=== PATIENT | female | born 1960 | race Caucasian/White ===

== ENCOUNTER 2019-09-10 14:58 | Outpatient (CLI) | payer OTHER, SELFPAY ==
--- NOTE | ~2019-09-10 | MM_ITS ---
EXAMINATION: MM screening [facility] BI w [facility] HISTORY: Screening mammogram TECHNIQUE: Craniocaudal and mediolateral oblique 3-D tomosynthesis images were obtained and synthetic 2-D images were generated. CAD analysis was submitted and interpreted. COMPARISON: 07/23/2018, 07/13/2015, 06/22/2014 BREAST PARENCHYMAL COMPOSITION: There are scattered areas of fibroglandular density. FINDINGS: There is no evidence of suspicious mass, calcification, or architectural distortion to sugg est malignancy in either breast. There has been no suspicious interval change. IMPRESSION: 1. No mammographic evidence of malignancy. 2. Recommend routine screening mammography in one year. BI-RADS Category 1: Negative Reviewed, dictated and finalized at location A. O RN
== END 2019-09-10 14:59 | disposition home or self-care (01) ==
PROVIDERS: PCP Nurse Practitioner Family; Visit Provider Nurse Practitioner Family
DX: Z12.31 Encounter for screening mammogram for malignant neoplasm of breast (principal)
CPT/HCPCS: 77063; 77067

== ENCOUNTER 2020-09-12 14:48 | Outpatient (CLI) | payer OTHER, SELFPAY ==
--- NOTE | ~2020-09-12 | MM_ITS ---
EXAMINATION: MM screening [facility] BI w [facility] HISTORY: Screening mammogram TECHNIQUE: Craniocaudal and mediolateral oblique 3-D tomosynthesis images were obtained and synthetic 2-D images were generated. CAD analysis was submitted and interpreted. COMPARISON: 09/10/2019, 07/23/2018, 07/13/2015 BREAST PARENCHYMAL COMPOSITION: There are scattered areas of fibroglandular density. FINDINGS: There is no evidence of suspicious mass, calcification, or architectural distortion to sugg est malignancy in either breast. There has been no suspicious interval change. IMPRESSION: 1. No mammographic evidence of malignancy. 2. Recommend routine screening mammography in one year. BI-RADS Category 1: Negative Reviewed, dictated and finalized at location A. LE BRANDER
== END 2020-09-12 14:49 | disposition home or self-care (01) ==
LOC: ANHIMG 14:50
PROVIDERS: PCP Nurse Practitioner Family; Visit Provider Nurse Practitioner Family
DX: Z12.31 Encounter for screening mammogram for malignant neoplasm of breast (principal)
CPT/HCPCS: 77063; 77067

== ENCOUNTER 2020-09-13 07:11 | Outpatient (CLI) | payer OTHER, SELFPAY ==
[2020-09-13 07:46] LABS: Basophils Percent Auto 0.4 % (0.2-1.2); Eosinophils Absolute Auto 0.2 K/mm3 (0-0.3); Eosinophils Percent Auto 2.8 % (0-4.4); Hematocrit 42.5 % (37.0-47.0); Hemoglobin 14.1 g/dL (12.0-15.0); Immature Granulocyte Absolute 0.02 K/mm3 (0.00-0.031); Immature Granulocyte Percent A 0.2 % (0-0.5); Lymphocytes Absolute Auto 2.27 K/mm3 (0.9-3.2); Lymphocytes Percent Auto 27.5 % (18.3-44.2); Mean Corpuscular HGB Conc 33.2 g/dl (32-36); Mean Corpuscular Hemoglobin 29.6 pg (26-34); Mean Corpuscular Volume 89.1 fl (80-100); Mean Platelet Volume 9.5 fl (7.4-10.4); Monocytes Absolute Auto 0.8 K/mm3 (0.1-0.6); Monocytes Percent Auto 9.2 % (2.6-8.5); Neutrophils Absolute Auto 4.9 K/mm3 (1.3-6.7); Neutrophils Percent Auto 59.9 % (45.5-73.1); Platelet Count Result 231 k/mm3 (150-375); Red Blood Count 4.77 M/mm3 (4.2-5.4); Red Cell Distribution Width 13.2 % (11.5-14.5); White Blood Count 8.3 K/mm3 (4.5-10.0)
[2020-09-13 08:00] LABS: Alanine Aminotransferase 19 U/L (4-35); Albumin Level 3.8 g/dL (3.5-5.1); Alkaline Phosphatase 81 U/L (38-126); Anion Gap 4 mmol/L (8-16); Aspartate Amino Transferase 28 U/L (14-36); Bilirubin,Total 0.3 mg/dL (0.2-1.3); Blood Urea Nitrogen 16 mg/dL (7-17); Calcium 9.4 mg/dL (8.4-10.2); Carbon Dioxide 28 mmol/L (22-30); Chloride 109 mmol/L (98-107); Cholesterol 207 mg/dL (0-200); Estimated Glomerular Filt Rate > 60; Glucose 94 mg/dL (65-105); HDL Direct 59 mg/dL; Potassium 4.7 mmol/L (3.4-5.0); Sodium 141 mmol/L (137-145); Triglycerides 156 mg/dL (<150)
[2020-09-13 08:28] LABS: LDL Cholesterol Direct 88 mg/dL; Vitamin D 25 Hydroxy 58.1 ng/mL
== END 2020-09-13 07:12 | disposition home or self-care (01) ==
PROVIDERS: PCP Nurse Practitioner Family; Visit Provider Nurse Practitioner Family
DX: Z13.0 Encounter for screening for diseases of the blood and blood-forming organs and certain disorders involving the immune mechanism (principal); Z13.1 Encounter for screening for diabetes mellitus; Z13.29 Encounter for screening for other suspected endocrine disorder; Z13.220 Encounter for screening for lipoid disorders; Z13.9 Encounter for screening, unspecified
CPT/HCPCS: 36415; 80053; 80061; 82306; 82607; 84443; 85025

== ENCOUNTER → 2020-11-18 00:43 | Outpatient (CLI) | payer OTHER, SELFPAY ==
[2020-11-18 19:49] LABS: SARS-CoV-2 RNA PCR Negative
== END ==
PROVIDERS: PCP Nurse Practitioner Family; Visit Provider Internal Medicine Gastroenterology
DX: Z01.812 Encounter for preprocedural laboratory examination (principal); Z20.822 Contact with and (suspected) exposure to COVID-19
CPT/HCPCS: C9803; U0003; U0005

== ENCOUNTER 2020-11-21 01:00 | Day surgery (SDC) | payer OTHER, SELFPAY ==
[2020-11-07 14:21] VITALS: BMI 24.9
[2020-11-21 06:50] VITALS: BMI 25.5
[2020-11-21 06:54] VITALS: BP 142/87; PULSE 76; RESP 16; TEMP 36.3; O2SAT 99
[2020-11-21] MEDS: LACTATED RINGERS 1,000 ML 150 ML IV CONT (07:05)
--- NOTE | 2020-11-21 07:44 | WPDANESEPPF ---
Anes - Initial Pre Proc Eval Procedure: Operation Date: 11/21/20 08:00 Proposed Procedures p Esophagogastroduodenoscopy - Stewart Kenney MD Date/Time: 11/21/20 07:44 Surgeon: Stewart Kenney MD Pre Op Diagnosis: Dysphagia Patient Data Age: 60 Gender: F Height: 5 ft 5 in Weight: 69.7 kg Last Vital Signs Temp 97.3 F L 11/21/20 06:54 Pulse 76 11/21/20 06:54 Resp 16 11/21/20 06:54 BP 142/87 H 11/21/20 06:54 Pulse Ox 99 11/21/20 06:54 Allergies Allergy/AdvReac Type Severity Reaction Status Date / Time Iodinated Contrast Media Allergy Severe RASH, Verified 11/21/20 07:08 HYPOTENSION adhesive Allergy Unknown RASH Verified 11/21/20 06:49 doxycycline Allergy Unknown Unknown Verified 11/21/20 06:49 ORAL CONTRAST MEDIA Allergy Mild RASH Uncoded 11/21/20 06:49 Contrast Media Allergy Unknown RASH, Uncoded 11/21/20 06:49 HYPOTENSION Home Medications Medication Instructions Recorded Confirmed Type omeprazole 20 mg capsule,delayed 20 mg PO DAILY #30 cap 09/14/20 11/21/20 Rx release diazepam 11/21/20 History Patient hx anesthesia problems: none Family hx anesthesia problems: none PMFSH Past Medical History Medical History (Updated 09/14/20 @ 14:32 by Stewart Kenney MD) GERD (gastroesophageal reflux disease) Family History Family History Other Family history of allergic disorder Family history of arthritis Family history of gout Family history of malignant neoplasm Family history of tuberculosis Hypertension Social History Social History (Updated 09/14/20 @ 14:11 by Vivi Barry CMA) Smoking status: Never smoker Alcohol intake: current Substance use: never Living arrangements: with family Gender identity (if verbalized by the patient): Female Sexual Orientation (if Verbalized by the Patient): Straight or Heterosexual Spiritual care concerns: No Anes - Eval Final PreProcedure Day of Procedure 11/21/20 07:44 Patient weight: normal Heart: regular rate and rhythm Lungs: clear to auscultation Airway: Mallampati scale class IV Neurological: alert and oriented Last oral intake: >/= 8 hours ASA classification: II Emergent: no Anesthetic plan: proceed Anesthesia type and monitoring: general GIVS and standard monitoring Informed Consent: The patient's anesthetic plan and its attendant risks and benefits were discussed with the patient/family/POA. Questions were solicited and answers provided to the satisfaction of the patient/family/POA.
--- NOTE | 2020-11-21 07:49 | PM.HPGS ---
History of Present Illness History of Present Illness Consent: Risks, benefits, and alternatives have been discussed and questions answered. Patient agrees to proceed with procedure. Chief complaint: Dysphagia Narrative: Adamaris Kim is a 60 year old female with dysphagia, never had EGD Review of Systems Constitutional: Constitutional: Denies headache(s) and Denies weakness Eyes: Eyes: Denies blurry vision ENT: Reports Normal hearing present, Denies headache(s) and Denies neck pain Cardiovascular: Cardiovascular: Denies chest pain and Denies dyspnea Respiratory: Respiratory: Denies dyspnea Gastrointestinal: Gastrointestinal: Reports no additional gastrointestinal complaints Genitourinary: Genitourinary: Denies dysuria Musculoskeletal: Musculoskeletal: Denies neck pain Integumentary/Breasts: Skin/Breast: Denies dry skin Neurologic: Reports Normal hearing present, Denies headache(s) and Denies weakness Psychiatric: Psychiatric: Denies anxiety Endocrine: Endocrine: Denies change in body appearance Hematologic/Lymphatic: Hematologic/Lymphatic: Denies easy bleeding Allergic/Immunologic: Allergic/Immunologic: Denies urticaria PMFSH Past Medical History Medical History (Updated 11/21/20 @ 07:50 by Stewart Kenney MD) Dysphagia GERD (gastroesophageal reflux disease) Family History Family History Other Family history of allergic disorder Family history of arthritis Family history of gout Family history of malignant neoplasm Family history of tuberculosis Hypertension Social History Social History (Updated 09/14/20 @ 14:11 by Vivi Barry CMA) Smoking status: Never smoker Alcohol intake: current Substance use: never Living arrangements: with family Gender identity (if verbalized by the patient): Female Sexual Orientation (if Verbalized by the Patient): Straight or Heterosexual Spiritual care concerns: No Meds Home Medications and Allergies Home Medications Medication Instructions Recorded Confirmed Type omeprazole 20 mg capsule,delayed 20 mg PO DAILY #30 cap 09/14/20 11/21/20 Rx release diazepam 11/21/20 History Allergies Allergy/AdvReac Type Severity Reaction Status Date / Time Iodinated Contrast Media Allergy Severe RASH, Verified 11/21/20 07:08 HYPOTENSION adhesive Allergy Unknown RASH Verified 11/21/20 06:49 doxycycline Allergy Unknown Unknown Verified 11/21/20 06:49 ORAL CONTRAST MEDIA Allergy Mild RASH Uncoded 11/21/20 06:49 Contrast Media Allergy Unknown RASH, Uncoded 11/21/20 06:49 HYPOTENSION Vital Signs Vital Signs - 24 hr 11/21/20 06:54 Temperature 97.3 F L Pulse Rate 76 Respiratory Rate 16 Blood Pressure 142/87 H Pulse Oximetry 99 Exam Const: General: comfortable and no acute distress HENMT: General nose exam: Normal nares present Eyes: General: appearance normal, both eyes and all related structures Neck: Neck: no JVD Resp: Auscultation: clear to auscultation bilaterally Cardio: Rate: regular rate Rhythm: regular rhythm GI: Inspection: non-distended GI Palp: Yes Soft to palpation Skin: General skin exam: normal color Neuro: General: gait normal Speech: normal speech Extrem: General: normal to inspection Psych: Mental Status: mental status grossly normal Assessment and Plan Assessment and plan (1) Dysphagia: Code(s): R13.10 - Dysphagia, unspecified Status: Acute Assessment and Plan: egd
[2020-11-21] MEDS: BENZOCAINE (*SP) 60 ML SPRAY CAN (HURRICAINE) 1 SPRAY MUCOUS MEM (07:54)
--- NOTE | 2020-11-21 08:06 | SUR.OPER ---
Esophageal Balloon Lot: [id number] Exp: 2022-09-27
[2020-11-21 08:08] VITALS: BP 90/53; PULSE 74; RESP 22; O2SAT 98
[2020-11-21 08:18] VITALS: BP 101/60; PULSE 73; RESP 23; O2SAT 100
[2020-11-21 08:28] VITALS: BP 101/60; PULSE 70; RESP 17; O2SAT 100
[2020-11-21 08:38] VITALS: BP 98/68; PULSE 71; RESP 15; O2SAT 100
== END 2020-11-21 08:42 | disposition home or self-care (01) ==
PROVIDERS: PCP Nurse Practitioner Family; Visit Provider Internal Medicine Gastroenterology
PROC: 0DJ08ZZ Inspection of Upper Intestinal Tract, Via Natural or Artificial Opening Endoscopic (ICD-10-PCS; CPT 43235; principal; 2020-11-21 08:00)
DX: K22.2 Esophageal obstruction (principal); K21.00 Gastro-esophageal reflux disease with esophagitis, without bleeding; K44.9 Diaphragmatic hernia without obstruction or gangrene; K25.9 Gastric ulcer, unspecified as acute or chronic, without hemorrhage or perforation; K29.50 Unspecified chronic gastritis without bleeding
CPT/HCPCS: 43239; 43249; 87081; 88305; C1726; J2704; J7120

== ENCOUNTER 2021-03-03 00:54 | Day surgery (SDC) | payer OTHER, SELFPAY ==
[2021-02-17 09:23] VITALS: BMI 25.0
[2021-03-03 06:30] VITALS: BP 144/79; PULSE 77; RESP 20; TEMP 36.6; O2SAT 99; BMI 25.7
[2021-03-03] MEDS: LACTATED RINGERS 1,000 ML 150 ML IV CONT (06:30)
--- NOTE | 2021-03-03 07:11 | WPDANESEPPF ---
Anes - Initial Pre Proc Eval Procedure: Operation Date: 03/03/21 07:30 Proposed Procedures p Esophagogastroduodenoscopy - Stewart Kenney MD Date/Time: 03/03/21 07:11 Surgeon: Stewart Kenney MD Pre Op Diagnosis: Gastric Ulcer Patient Data Age: 60 Gender: F Height: 1.65 m Weight: 70 kg Last Vital Signs Temp 97.9 F 03/03/21 06:30 Pulse 77 03/03/21 06:30 Resp 20 03/03/21 06:30 BP 144/79 H 03/03/21 06:30 Pulse Ox 99 03/03/21 06:30 Allergies Allergy/AdvReac Type Severity Reaction Status Date / Time Iodinated Contrast Media Allergy Severe RASH, Verified 03/03/21 06:23 HYPOTENSION adhesive Allergy Unknown RASH Verified 03/03/21 06:23 doxycycline Allergy Unknown Unknown Verified 03/03/21 06:23 ORAL CONTRAST MEDIA Allergy Mild RASH Uncoded 03/03/21 06:23 Contrast Media Allergy Unknown RASH, Uncoded 03/03/21 06:23 HYPOTENSION Home Medications Medication Instructions Recorded Confirmed Type diazepam 5 mg PO PRN PRN 11/21/20 02/17/21 History omeprazole 40 mg capsule,delayed 40 mg PO DAILY #30 cap 11/22/20 02/17/21 Rx release Patient hx anesthesia problems: none Family hx anesthesia problems: none PMFSH Past Medical History Medical History (Updated 11/21/20 @ 07:50 by Stewart Kenney MD) Dysphagia GERD (gastroesophageal reflux disease) Family History Family History Other Family history of allergic disorder Family history of arthritis Family history of gout Family history of malignant neoplasm Family history of tuberculosis Hypertension Social History Social History (Updated 09/14/20 @ 14:11 by Vivi Barry CMA) Smoking status: Never smoker Alcohol intake: current Substance use: never Substance use type: does not use Living arrangements: with family Gender identity (if verbalized by the patient): Female Spiritual care concerns: No Anes - Eval Final PreProcedure Day of Procedure 03/03/21 07:11 Patient weight: overweight Heart: regular rate and rhythm Lungs: clear to auscultation Airway: Mallampati scale class II Neurological: alert and oriented Last oral intake: >/= 8 hours ASA classification: II Emergent: no Anesthetic plan: proceed Anesthesia type and monitoring: general GIVS and standard monitoring Informed Consent: The patient's anesthetic plan and its attendant risks and benefits were discussed with the patient/family/POA. Questions were solicited and answers provided to the satisfaction of the patient/family/POA.
--- NOTE | 2021-03-03 07:27 | PM.HPGS ---
History of Present Illness History of Present Illness Consent: Risks, benefits, and alternatives have been discussed and questions answered. Patient agrees to proceed with procedure. Chief complaint: Gastric Ulcer Narrative: Adamaris Kim is a 60 year old female with erosive gastritis on omeprazole and doing better, here to reassess Review of Systems Constitutional: Constitutional: Denies headache(s) and Denies weakness Eyes: Eyes: Denies blurry vision ENT: Reports Normal hearing present, Denies headache(s) and Denies neck pain Cardiovascular: Cardiovascular: Denies chest pain and Denies dyspnea Respiratory: Respiratory: Denies dyspnea Gastrointestinal: Gastrointestinal: Reports no additional gastrointestinal complaints Genitourinary: Genitourinary: Denies dysuria Musculoskeletal: Musculoskeletal: Denies neck pain Integumentary/Breasts: Skin/Breast: Denies dry skin Neurologic: Reports Normal hearing present, Denies headache(s) and Denies weakness Psychiatric: Psychiatric: Denies anxiety Endocrine: Endocrine: Denies change in body appearance Hematologic/Lymphatic: Hematologic/Lymphatic: Denies easy bleeding Allergic/Immunologic: Allergic/Immunologic: Denies urticaria PMFSH Past Medical History Medical History (Updated 03/03/21 @ 07:28 by Stewart Kenney MD) Dysphagia Erosive gastritis GERD (gastroesophageal reflux disease) Family History Family History Other Family history of allergic disorder Family history of arthritis Family history of gout Family history of malignant neoplasm Family history of tuberculosis Hypertension Social History Social History (Updated 09/14/20 @ 14:11 by Vivi Barry CMA) Smoking status: Never smoker Alcohol intake: current Substance use: never Substance use type: does not use Living arrangements: with family Gender identity (if verbalized by the patient): Female Spiritual care concerns: No Meds Home Medications and Allergies Home Medications Medication Instructions Recorded Confirmed Type diazepam 5 mg PO PRN PRN 11/21/20 02/17/21 History omeprazole 40 mg capsule,delayed 40 mg PO DAILY #30 cap 11/22/20 02/17/21 Rx release Allergies Allergy/AdvReac Type Severity Reaction Status Date / Time Iodinated Contrast Media Allergy Severe RASH, Verified 03/03/21 06:23 HYPOTENSION adhesive Allergy Unknown RASH Verified 03/03/21 06:23 doxycycline Allergy Unknown Unknown Verified 03/03/21 06:23 ORAL CONTRAST MEDIA Allergy Mild RASH Uncoded 03/03/21 06:23 Contrast Media Allergy Unknown RASH, Uncoded 03/03/21 06:23 HYPOTENSION Vital Signs Vital Signs - 24 hr 03/03/21 06:30 Temperature 97.9 F Pulse Rate 77 Respiratory Rate 20 Blood Pressure 144/79 H Pulse Oximetry 99 Exam Const: General: comfortable and no acute distress HENMT: General nose exam: Normal nares present Eyes: General: appearance normal, both eyes and all related structures Neck: Neck: no JVD Resp: Auscultation: clear to auscultation bilaterally Cardio: Rate: regular rate Rhythm: regular rhythm GI: Inspection: non-distended GI Palp: Yes Soft to palpation Skin: General skin exam: normal color Neuro: General: gait normal Speech: normal speech Extrem: General: normal to inspection Psych: Mental Status: mental status grossly normal Assessment and Plan Assessment and plan (1) Erosive gastritis: Code(s): K29.60 - Other gastritis without bleeding Status: Acute Assessment and Plan: egd
[2021-03-03 07:40] VITALS: BP 111/72; PULSE 67; RESP 20; O2SAT 99
[2021-03-03 07:50] VITALS: BP 127/75; PULSE 68; RESP 20; O2SAT 99
[2021-03-03 08:00] VITALS: BP 127/75; PULSE 68; RESP 20; O2SAT 99
== END 2021-03-03 08:04 | disposition home or self-care (01) ==
PROVIDERS: PCP Nurse Practitioner Family; Visit Provider Internal Medicine Gastroenterology
PROC: 0DJ08ZZ Inspection of Upper Intestinal Tract, Via Natural or Artificial Opening Endoscopic (ICD-10-PCS; CPT 43235; principal; 2021-03-03 07:30)
DX: K29.60 Other gastritis without bleeding (principal); K29.50 Unspecified chronic gastritis without bleeding; K44.9 Diaphragmatic hernia without obstruction or gangrene; Z87.19 Personal history of other diseases of the digestive system; R13.10 Dysphagia, unspecified
CPT/HCPCS: 43239; 88305; J2704; J7120

== ENCOUNTER 2021-06-08 09:27 | Outpatient (CLI) | payer OTHER, SELFPAY ==
--- NOTE | ~2021-06-08 | XR_ITS ---
EXAMINATION: XR lg joint inject/asp w image DATE: 06/08/2021 10:29 INDICATION: Frozen right shoulder. TECHNIQUE: A time-out was performed to verify the patient's name, date of , and procedure to b e performed. The procedure including the risks, benefits, and alternatives was discussed with the pat ient. Risks discussed included bleeding and infection. The patient understood the risks and agreed to proceed. The skin overlying the right glenohumeral joint was prepped and draped in usual sterile fa shion. Anesthetic was administered with 1% lidocaine subcutaneously. A 22 G needle was advanced und er fluoroscopic guidance into the joint. Subsequently, injectate consisting of 4 mL 1% lidocaine and 1 mL 80 mg/mL Depo-Medrol was instilled. The needle was removed and the entry site was cleaned and dressed. There were no immediate complications. Fluoroscopy exposure time was 0.0 minutes. The total number of images was 1. FINDINGS: Real-time fluoroscopy demonstrates the needle in the right glenohumeral joint. Patient's pa in prior to procedure:09/21. Patient's pain following the procedure: 2/10. IMPRESSION: 1. Fluoroscopy guided right glenohumeral joint injection of local anesthetic and steroid. Reviewed, dictated and finalized at location A. IMPRESSION: 1. Fluoroscopy guided right glenohumeral joint injection of local anesthetic an d steroid.
== END 2021-06-08 09:28 | disposition home or self-care (01) ==
LOC: ANHIMG 09:32
PROVIDERS: PCP Nurse Practitioner Family; Visit Provider Orthopaedic Surgery
DX: M75.01 Adhesive capsulitis of right shoulder (principal)
CPT/HCPCS: 20610; 77002; J1040

== ENCOUNTER 2021-07-28 10:00 | Outpatient (RCR) | payer OTHER, SELFPAY ==
[2021-06-29 15:05] VITALS: BP_SYST 110
--- NOTE | 2021-06-29 15:58 | PTOPEVAL ---
PHYSICAL THERAPY EVALUATION AND PLAN OF CARE 06-29-21 Thank you for referring Adamaris Kim to [facility], for the diagnosis of R frozen shoulder. She is scheduled to be seen for therapy? 2 x/week for 4 weeks. Please review, sign, date and return this plan of care ALFREDA. I agree with and certify that the following plan of care is medically necessary. Referring Physician Date Attending Provider: Chuy Gurrola MD PT Outpatient Evaluation Document 06/29/21 15:05 NAM (Rec: 06/29/21 15:53 NAM [id number]) Neurological History Hx Neurological Disorders No Significant History Cardiovascular History Hx Cardiac Disorders No Significant History Respiratory History Hx Bronchitis Yes Hx Pneumonia Yes Gastrointestinal History Hx Cholecystectomy Yes Hx Gastroesophageal Reflux Disease Yes Hx Irritable Bowel Yes Hx Ulcer Yes Genitourinary History Hx Genitourinary Disorders No Significant History Musculoskeletal History Hx Musculoskeletal Disorders No Significant History Hematological History Hx Hematological Disorders No Significant History Endocrine History Hx Endocrine Disorders No Significant History HEENT History Hx HEENT Disorders No Significant History Integumentary History Hx Skin Disorders No Significant History Reproductive History Hx Post Menopausal Yes Hx Other Reproductive Disorders Yes: benign breast lumpectomy Psychosocial History Hx Anxiety Yes Pain History History of Any Previous or Ongoing No Significant History Instance of Pain Anesthesia History Hx Anesthesia Reactions No Significant History Evaluation Information Problem Diagnosis R frozen shoulder Onset January 2021 Subjective Information no injury to shoulder, gradual Query Text:As Reported By Patient/ increase in pain; had had Family injection, helped few days, then returned to pain; Diagnostic Tests X-Rays For This Problem Yes: per pt- negative Previous Treatments Previous Treatments For This Problem no PT for shoulder Prior Level of Function Activity Level (Last 3 Months) 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
--- NOTE | 2021-07-31 10:03 | PCPTNOTE ---
pt called and canceled today's reevaluation.
--- NOTE | 2021-09-01 09:52 | PCPTNOTE ---
PHYSICAL THERAPY DISCHARGE 09-01-21 Attending Provider: Chuy Gurrola MD Patient:Adamaris Kim Date of :1960 Ms. Kim has not returned for any further treatments since 07/28/2021, therefore she will be discharged at this time. Adamaris received 7 PT sessions, from June 29 to July 28 for the diagnosis of R frozen shoulder. She then stopped attending, The goals were not addressed. Thank you for referring Ms. Kim to [facility]. Please review, sign, date and return this discharge summary ALFREDA. I have been updated about the patient's current status and I agree with discharge from the above service at this time. Referring Physician Date
== END 2021-09-04 08:56 | disposition home or self-care (01) ==
LOC: ANHPT 10:00
PROVIDERS: PCP Nurse Practitioner Family; Visit Provider Orthopaedic Surgery
DX: M75.01 Adhesive capsulitis of right shoulder (principal)
CPT/HCPCS: 97014; 97110; 97140; 97161; G0283

== ENCOUNTER 2021-08-03 12:56 | Outpatient (RCR) | payer OTHER, SELFPAY ==
[2021-08-03] MEDS: diphenhydrAMINE HCl CAP 25 MG CAPSULE PO (14:05)
[2021-08-03] MEDS: FAMOTIDINE 20 MG TABLET PO (14:05)
[2021-08-03] MEDS: ACETAMINOPHEN 325 MG TABLET 650 MG PO (14:05)
[2021-08-03 14:12] VITALS: BP 123/61; PULSE 69; RESP 18; TEMP 36.9; O2SAT 95
[2021-08-03 15:38] VITALS: BP 120/58
== END 2021-08-03 17:00 ==
LOC: AMCINF 12:56
PROVIDERS: PCP Family Medicine; Visit Provider Internal Medicine Hematology & Oncology
DX: U07.1 COVID-19 (principal)
CPT/HCPCS: A9270; M0245; Q0245

== ENCOUNTER 2022-01-27 18:14 | Emergency (ER) | payer OTHER, SELFPAY ==
--- NOTE | ~2022-01-27 | XR_ITS ---
EXAM: XR foot RT min 3V DATE: 01/27/2022 18:38 HISTORY: pain to 3rd/4th toes after INJURY,PAIN INTO METATARSALS . COMPARISON: None available. FINDINGS: Normal mineralization. Oblique minimally displaced fracture of the fourth proximal phalang e. No lytic or blastic lesion. Moderate degenerative change at the first and second MTP joints and mu ltiple midfoot joints. Plantar enthesopathy. No erosion or periosteal change. Soft tissues within nor mal limits. IMPRESSION: Oblique minimally displaced fracture of the fourth proximal phalange. Reviewed, dictated and finalized at location K. IMPRESSION: Oblique minimally displaced fracture of the fourth proximal phalang e.
[2022-01-27 18:19] VITALS: BP 124/82; PULSE 89; RESP 16; TEMP 36.8; O2SAT 99
--- NOTE | 2022-01-27 18:31 | ED.GENADULT ---
HPI - General Adult General Chief complaint: Extremity Injury, Lower Stated complaint: broken toe Time Seen by Provider: 01/27/22 18:20 Source: patient Mode of arrival: ambulatory Limitations: no limitations History of Present Illness HPI narrative: Patient is a 61-year-old female who presents to the ED with c/o pain to her right fourth toe. Patient reports she slipped in her bathroom earlier this morning and hit her right toes against threshold where the carpet meets the tile. She states her right fourth toe went horizontal, but she was able to pop it back into place. She then cathy taped her toes together and has been dealing with the pain today. She has been able to bear weight, but has pain with this. She reports that the pain and swelling is radiating more into her third toe and into her dorsal foot, which prompted her to come to the ED. She denies any numbness, tingling. No other injuries. No head injury. No prodromal symptoms. Related Data Home Medications Medication Instructions Recorded Confirmed diazepam 5 mg tablet 5 mg PO PRN PRN Anxiety 11/21/20 08/03/21 Allergies Allergy/AdvReac Type Severity Reaction Status Date / Time Iodinated Contrast Media Allergy Severe RASH, Verified 01/27/22 18:46 HYPOTENSION adhesive Allergy Unknown RASH Verified 01/27/22 18:46 doxycycline Allergy Unknown Unknown Verified 01/27/22 18:46 ORAL CONTRAST MEDIA Allergy Mild RASH Uncoded 01/27/22 18:46 Contrast Media Allergy Unknown RASH, Uncoded 01/27/22 18:46 HYPOTENSION Review of Systems Review of Systems: CONSTITUTIONAL: Denies fever. EYES: Denies visual changes. CARDIOVASCULAR: Denies chest pain. RESPIRATORY: Denies dyspnea. GASTROINTESTINAL: Denies abdominal pain. SKIN: Reports swelling to right fourth toe into dorsal foot. Denies lacerations, wounds. MUSCULOSKELETAL: Reports pain to right fourth toe, radiating to right dorsal foot. NEUROLOGIC: Denies HI, numbness, tingling, or weakness. All systems reviewed & are unremarkable except as noted in HPI and below PMFSH Past Medical History Medical History Dysphagia Erosive gastritis GERD (gastroesophageal reflux disease) Surgical History Surgical History (Updated 01/27/22 @ 18:38 by Jessy N. Skau, PA-C) History of breast biopsy History of cholecystectomy Family History Family History Other Family history of allergic disorder Family history of arthritis Family history of gout Family history of malignant neoplasm Family history of tuberculosis Hypertension Social History Social History Smoking status: Never smoker Alcohol intake: current Substance use: never Substance use type: does not use Gender identity (if verbalized by the patient): Female Sexual Orientation (if Verbalized by the Patient): Straight or Heterosexual Spiritual care concerns: No Exam Narrative: GENERAL: Well appearing, well-nourished, non-toxic, in no acute distress. HEAD: Normocephalic, atraumatic. RESPIRATORY: Airway patent, respirations nonlabored. CARDIOVASCULAR: Regular rate and rhythm without murmurs, rubs, or gallops. Peripheral pulses 2+ and equal bilaterally. MUSCULOSKELETAL: Moves all extremities. Limited ROM of R toes due to pain. Diffuse swelling, bruising, TTP to right fourth toe. Swelling and bruising extending into right dorsal foot, extending over area of 3rd-5th metatarsal heads. SKIN: Warm, dry, normal color. No rashes. NEURO: A&O X3. Speech clear. Cranial nerves II-XII grossly intact. Steady gait. No ataxic movements. PSYCHIATRIC: Appropriate mood and affect. Normal interaction. Course Vital Signs Vital signs: Vital Signs Temperature 98.2 F 01/27/22 18:19 Pulse Rate 89 01/27/22 18:19 Respiratory Rate 16 01/27/22 18:19 Blood Pressure 124/82 01/27/22 18:19 Pulse
[2022-01-27] MEDS: HYDROcodone/acetaminophen (*CRX) 5-325 MG TABLET 1 TAB PO (19:02)
--- NOTE | 2022-01-27 19:03 | PC.NURSE ---
patient's 4th toe cathy taped to 5th toe and patient placed in post op shoe
== END 2022-01-27 19:14 | disposition home or self-care (01) ==
LOC: ANHED 19:02
PROVIDERS: Emergency Provider Emergency Medicine; PCP Family Medicine
DX: S92.511A Displaced fracture of proximal phalanx of right lesser toe(s), initial encounter for closed fracture (principal); K21.9 Gastro-esophageal reflux disease without esophagitis; W22.01XA Walked into wall, initial encounter
CPT/HCPCS: 73630; 99284; A9270

== ENCOUNTER 2022-02-16 06:50 | Outpatient (CLI) | payer OTHER, SELFPAY ==
[2022-02-16 07:53] LABS: Basophils Percent Auto 0.7 % (0.2-1.2); Eosinophils Absolute Auto 0.1 K/mm3 (0-0.3); Eosinophils Percent Auto 2.2 % (0-4.4); Hematocrit 40.7 % (37.0-47.0); Hemoglobin 13.6 g/dL (12.0-15.0); Immature Granulocyte Absolute 0.04 K/mm3 (0.00-0.031); Immature Granulocyte Percent A 0.7 % (0-0.5); Lymphocytes Percent Auto 31.1 % (18.3-44.2); Mean Corpuscular HGB Conc 33.4 g/dl (32-36); Mean Corpuscular Hemoglobin 29.5 pg (26-34); Mean Corpuscular Volume 88.3 fl (80-100); Mean Platelet Volume 10.2 fl (7.4-10.4); Monocytes Absolute Auto 0.8 K/mm3 (0.1-0.6); Monocytes Percent Auto 13.5 % (2.6-8.5); Neutrophils Percent Auto 51.8 % (45.5-73.1); Platelet Count Result 226 k/mm3 (150-375); Red Blood Count 4.61 M/mm3 (4.2-5.4); Red Cell Distribution Width 13.4 % (11.5-14.5); White Blood Count 5.8 K/mm3 (4.5-10.0)
[2022-02-16 08:02] LABS: Alanine Aminotransferase 19 U/L (6-35); Alkaline Phosphatase 89 U/L (38-126); Anion Gap 3 mmol/L (8-16); Aspartate Amino Transferase 27 U/L (14-36); Bilirubin,Total 0.4 mg/dL (0.2-1.3); Blood Urea Nitrogen 23 mg/dL (7-17); Calcium 9.1 mg/dL (8.4-10.2); Carbon Dioxide 30 mmol/L (22-30); Chloride 107 mmol/L (98-107); Cholesterol 268 mg/dL (0-200); Estimated Glomerular Filt Rate > 60; Glucose 85 mg/dL (65-110); HDL Direct 65 mg/dL; Potassium 4.1 mmol/L (3.4-5.0); Sodium 140 mmol/L (137-145); Triglycerides 110 mg/dL (<150)
[2022-02-16 08:12] LABS: LDL Cholesterol Direct 120 mg/dL
[2022-02-16 08:19] LABS: Hemoglobin A1C 5.2 % (<5.7)
[2022-02-16 09:15] LABS: Folic Acid > 20.0 ng/mL (2.76->20)
[2022-02-16 15:10] LABS: Vitamin D 25 Hydroxy 51.4 ng/mL
[2022-02-16 20:56] LABS: Thyroid Stimulating Hormone Reflex 0.287 uIU/mL (0.465-4.68)
[2022-02-16 23:31] LABS: Free T4 Free Thyroxine Reflex 0.97 ng/dL (0.78-2.19)
[2022-02-17 00:21] LABS: Total Triiodothyronine (T3) 1.48 NG/ML (0.97-1.69)
== END 2022-02-16 06:51 | disposition home or self-care (01) ==
LOC: ANHLAB 06:55
PROVIDERS: PCP Family Medicine; Visit Provider Nurse Practitioner Family
DX: Z13.0 Encounter for screening for diseases of the blood and blood-forming organs and certain disorders involving the immune mechanism (principal); Z13.1 Encounter for screening for diabetes mellitus; Z13.29 Encounter for screening for other suspected endocrine disorder; Z13.220 Encounter for screening for lipoid disorders; Z13.9 Encounter for screening, unspecified
CPT/HCPCS: 36415; 80053; 80061; 82306; 82607; 82746; 83036; 84439; 84443; 84480; 85025

== ENCOUNTER 2022-02-23 15:20 | Emergency (ER) | payer OTHER, SELFPAY ==
--- NOTE | ~2022-02-23 | XR_ITS ---
EXAMINATION: XR finger 5th LT min 2V DATE: 02/23/2022 15:55 INDICATION: Injury with pain at the left fifth proximal interphalangeal joint. TECHNIQUE: Dorsal palmar, lateral and 2 oblique views of the left fifth digit were obtained COMPARISON: 04/06/2019 FINDINGS: Bone alignment is normal. No fracture. No significant change in mild osteoarthritis at multiple inter phalangeal joints including at the fifth proximal and distal interphalangeal joints. Prominent soft t issue swelling about the fifth proximal interphalangeal joint. IMPRESSION: 1. No acute osseous abnormality. 2. 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 Reviewed, dictated and finalized at location B.
[2022-02-23 15:22] VITALS: BP 151/84; PULSE 78; RESP 16; TEMP 36.4; O2SAT 100
--- NOTE | 2022-02-23 15:40 | ED.GENADULT ---
HPI - General Adult General Chief complaint: Extremity Injury, Upper Stated complaint: finger injury Time Seen by Provider: 02/23/22 15:29 History of Present Illness HPI narrative: 61-year-old female presenting to the emergency department for evaluation after an injury to her left fifth finger. Patient states that a door was opened quickly and struck her in the left hand injurying her 5th finger. Patient states this happened at approximately 3:00. Patient denies any other pain or injury. Patient does have ecchymosis and swelling affecting the digit. Patient states she does have range of motion that is limited due to the swelling. Related Data Home Medications Medication Instructions Recorded Confirmed diazepam 5 mg tablet 5 mg PO PRN PRN Anxiety 11/21/20 08/03/21 Allergies Allergy/AdvReac Type Severity Reaction Status Date / Time Iodinated Contrast Media Allergy Severe RASH, Verified 02/23/22 18:01 HYPOTENSION adhesive Allergy Unknown RASH Verified 02/23/22 18:01 doxycycline Allergy Unknown Unknown Verified 02/23/22 18:01 ORAL CONTRAST MEDIA Allergy Mild RASH Uncoded 02/23/22 18:01 Contrast Media Allergy Unknown RASH, Uncoded 02/23/22 18:01 HYPOTENSION Review of Systems Review of Systems: CONSTITUTIONAL: Denies fever, chills, or sweats. EYES: Denies visual changes, redness, or discharge. ENT: Denies rhinorrhea, congestion, sore throat, or otalgia. CARDIOVASCULAR: Denies chest pain, palpitations, or edema. RESPIRATORY: Denies cough or dyspnea. GASTROINTESTINAL: Denies abdominal pain, nausea, vomiting, or diarrhea. GENITOURINARY: Denies dysuria or hematuria. SKIN: Denies rash or itching. MUSCULOSKELETAL: See HPI NEUROLOGIC: Denies headache, numbness, or weakness. [facility] Past Medical History Medical History Dysphagia Erosive gastritis GERD (gastroesophageal reflux disease) Surgical History Surgical History (Updated 01/27/22 @ 18:38 by Jessy Arcos PA-C) History of breast biopsy History of cholecystectomy Family History Family History Other Family history of allergic disorder Family history of arthritis Family history of gout Family history of malignant neoplasm Family history of tuberculosis Hypertension Social History Social History Smoking status: Never smoker Alcohol intake: current Substance use: never Substance use type: does not use Gender identity (if verbalized by the patient): Female Sexual Orientation (if Verbalized by the Patient): Straight or Heterosexual Spiritual care concerns: No Exam Narrative: APPEARANCE: Well appearing, no pain, no distress, well-nourished. HEAD: normocephalic, atraumatic. EYES: PERRLA/EOMI, conjunctivae clear. RESPIRATORY: Airway patent, respirations nonlabored. Clear to auscultation bilaterally, no rales, rhonchi, wheezing. CARDIOVASCULAR: Regular rate and rhythm without murmurs rubs or gallops. ABDOMINAL: Soft, nontender, nondistended, normal bowel sounds MUSCULOSKELETAL: 2 areas of ecchymosis associated with the fifth finger of the left hand. Normal range of motion. Minimal tenderness to palpation. NEURO: Alert. Cranial nerves II through XII intact. Good gait. Good coordination SKIN: Warm, dry. Normal Color PSYCHIATRIC: Normal affect/mood. Course Vital Signs Vital signs: Vital Signs Temperature 97.5 F L 02/23/22 15:22 Pulse Rate 78 02/23/22 15:22 Respiratory Rate 16 02/23/22 15:22 Blood Pressure 151/84 H 02/23/22 15:22 Pulse Oximetry 100 02/23/22 15:22 Temperature 97.5 F L 02/23/22 15:22 Pulse Rate 78 02/23/22 15:22 Respiratory Rate 16 02/23/22 15:22 Blood Pressure 151/84 H 02/23/22 15:22 Pulse Oximetry 100 02/23/22 15:22 Medical Decision Making Vital Signs Vital Signs: Vital Signs Temperature 97.5 F L
--- NOTE | 2022-02-23 16:35 | PC.NURSE ---
Finger splint and coban wrap applied successfully without difficulty. Pt. tolerated well.
== END 2022-02-23 16:35 | disposition home or self-care (01) ==
LOC: ANHED 16:23
PROVIDERS: Emergency Provider Emergency Medicine; PCP Nurse Practitioner Family
DX: S60.052A Contusion of left little finger without damage to nail, initial encounter (principal); K21.9 Gastro-esophageal reflux disease without esophagitis; M19.042 Primary osteoarthritis, left hand
CPT/HCPCS: 29130; 73140; 99283

== ENCOUNTER 2022-03-19 07:02 | Outpatient (CLI) | payer OTHER, SELFPAY ==
[2022-03-19 09:51] LABS: Free T4 Free Thyroxine 0.96 ng/mL (0.78-2.19)
[2022-03-19 13:28] LABS: Thyroid Stimulating Hormone 0.557 uIU/mL (0.465-4.680)
[2022-03-21 21:01] LABS: Triiodothyronine T3 Free 3.1 pg/mL (2.3-4.2)
== END 2022-03-19 07:03 | disposition home or self-care (01) ==
LOC: ANHLAB 07:05
PROVIDERS: PCP Nurse Practitioner Family; Visit Provider Nurse Practitioner Family
DX: R94.6 Abnormal results of thyroid function studies (principal)
CPT/HCPCS: 36415; 84439; 84443; 84481

== ENCOUNTER 2022-04-20 09:48 | Outpatient (CLI) | payer OTHER, SELFPAY ==
--- NOTE | ~2022-04-20 | MM_ITS ---
EXAMINATION: MM screening karrie BI w honorio HISTORY: Screening mammogram TECHNIQUE: Craniocaudal and mediolateral oblique 3-D tomosynthesis images were obtained and synthetic 2-D images were generated. CAD analysis was submitted and interpreted. COMPARISON: September 12, 2020, September 10, 2019, July 23, 2018 bilateral screening mammogram [facility] BREAST PARENCHYMAL COMPOSITION: There are scattered areas of fibroglandular density. FINDINGS: Stable mild fibroglandular asymmetry. There is no evidence of suspicious mass, calcificatio n, or architectural distortion to suggest malignancy in either breast. There has been no suspicious i nterval change. IMPRESSION: 1. No mammographic evidence of malignancy. 2. Recommend routine screening mammography in one year. BI-RADS Category 1: Negative Reviewed, dictated and finalized at location A.
== END 2022-04-20 09:49 | disposition home or self-care (01) ==
LOC: ANHIMG 09:52
PROVIDERS: PCP Nurse Practitioner Family; Visit Provider Nurse Practitioner Family
DX: Z12.31 Encounter for screening mammogram for malignant neoplasm of breast (principal)
CPT/HCPCS: 77063; 77067

== ENCOUNTER 2023-01-21 00:38 | Day surgery (SDC) | payer OTHER, SELFPAY ==
[2023-01-14 12:24] VITALS: BMI 26.6
[2023-01-21 07:30] VITALS: BP 133/79; PULSE 74; RESP 18; TEMP 36.5; O2SAT 100; BMI 24.1
--- NOTE | 2023-01-21 07:37 | WPDANESEPPF ---
Anes - Initial Pre Proc Eval Procedure: Operation Date: 01/21/23 08:30 Proposed Procedures p Esophagogastroduodenoscopy & Screening Colonoscopy - Stewart Kenney MD Date/Time: 01/21/23 07:37 Surgeon: Stewart Kenney MD Pre Op Diagnosis: dysphagia, neoplasm screening Patient Data Age: 62 Gender: F Height: 1.63 m Weight: 63.8 kg Last Vital Signs Temp 36.5 C 01/21/23 07:30 Pulse 74 01/21/23 07:30 Resp 18 01/21/23 07:30 BP 133/79 01/21/23 07:30 Pulse Ox 100 01/21/23 07:30 O2 Del Method Room Air 01/21/23 07:30 Allergies Allergy/AdvReac Type Severity Reaction Status Date / Time Iodinated Contrast Media Allergy Severe RASH, Verified 01/21/23 07:29 HYPOTENSION adhesive Allergy Unknown RASH Verified 01/21/23 07:29 doxycycline Allergy Unknown Dizziness Verified 01/21/23 07:29 ORAL CONTRAST MEDIA Allergy Mild RASH Uncoded 01/21/23 07:29 Contrast Media Allergy Unknown RASH, Uncoded 01/21/23 07:29 HYPOTENSION Home Medications Medication Instructions Recorded Confirmed Type diazepam 5 mg tablet 5 mg PO PRN PRN Anxiety 11/21/20 01/21/23 History omeprazole 40 mg capsule,delayed 40 mg PO DAILY #30 caps 11/22/20 01/21/23 Rx release multivitamin with minerals-folic 1 tablet PO DAILY 01/14/23 01/21/23 History acid 200 mcg chewable tablet (Adult Multivitamin Gummies) Patient hx anesthesia problems: none Family hx anesthesia problems: none Results Review: All pre-operative results and documents have been reviewed as part of the pre-operative evaluation. [facility] Past Medical History Medical History Dysphagia Erosive gastritis GERD (gastroesophageal reflux disease) Surgical History Surgical History (Updated 01/27/22 @ 18:38 by Jessy Meléndez PA-C) History of breast biopsy History of cholecystectomy Family History Family History Other Family history of allergic disorder Family history of arthritis Family history of gout Family history of malignant neoplasm Family history of tuberculosis Hypertension Social History Social History Smoking status: Never smoker Alcohol intake: current Substance use: never Substance use type: does not use Living arrangements: with family Occupation/Education: occupation Gender identity (if verbalized by the patient): Female Sexual Orientation (if Verbalized by the Patient): Straight or Heterosexual Spiritual care concerns: No Anes - Eval Final PreProcedure Day of Procedure 01/21/23 07:37 Patient weight: normal Heart: regular rate and rhythm Lungs: clear to auscultation and normal air movement Airway: Mallampati scale class II Neurological: alert and oriented Last oral intake: >/= 8 hours ASA classification: II Emergent: no Anesthetic plan: proceed Anesthesia type and monitoring: general GIVS and standard monitoring Results Review: All pre-operative results and documents have been reviewed as part of the pre-operative evaluation. Informed Consent: The patient's anesthetic plan and its attendant risks and benefits were discussed with the patient/family/POA. Questions were solicited and answers provided to the satisfaction of the patient/family/POA.
[2023-01-21] MEDS: LACTATED RINGERS 1,000 ML 150 ML IV CONT (07:47)
--- NOTE | 2023-01-21 08:13 | PM.HPGS ---
History of Present Illness History of Present Illness Consent: Risks, benefits, and alternatives have been discussed and questions answered. Patient agrees to proceed with procedure. Chief complaint: dysphagia, neoplasm screening Narrative: Adamaris Kim is a 62 year old female with dysphagia (2 years ago had dilatation of esophageal ring with 20 mm balloon, also ulcer but better with ppi), last colonoscopy 10 years ago. Review of Systems Constitutional: Constitutional: Denies headache(s) and Denies weakness Eyes: Eyes: Denies blurry vision ENT: Reports Normal hearing present, Denies headache(s) and Denies neck pain Cardiovascular: Cardiovascular: Denies chest pain and Denies dyspnea Respiratory: Respiratory: Denies dyspnea Gastrointestinal: Gastrointestinal: Reports no additional gastrointestinal complaints Genitourinary: Genitourinary: Denies dysuria Musculoskeletal: Musculoskeletal: Denies neck pain Integumentary/Breasts: Skin/Breast: Denies dry skin Neurologic: Reports Normal hearing present, Denies headache(s) and Denies weakness Psychiatric: Psychiatric: Denies anxiety Endocrine: Endocrine: Denies change in body appearance Hematologic/Lymphatic: Hematologic/Lymphatic: Denies easy bleeding Allergic/Immunologic: Allergic/Immunologic: Denies urticaria PMFSH Past Medical History Medical History (Updated 01/21/23 @ 08:14 by Stewart Kenney MD) Colon cancer screening Dysphagia Erosive gastritis GERD (gastroesophageal reflux disease) Surgical History Surgical History (Updated 01/27/22 @ 18:38 by Jessy Meléndez PA-C) History of breast biopsy History of cholecystectomy Family History Family History Other Family history of allergic disorder Family history of arthritis Family history of gout Family history of malignant neoplasm Family history of tuberculosis Hypertension Social History Social History Smoking status: Never smoker Alcohol intake: current Substance use: never Substance use type: does not use Living arrangements: with family Occupation/Education: occupation Gender identity (if verbalized by the patient): Female Sexual Orientation (if Verbalized by the Patient): Straight or Heterosexual Spiritual care concerns: No Meds Home Medications and Allergies Home Medications Medication Instructions Recorded Confirmed Type diazepam 5 mg tablet 5 mg PO PRN PRN Anxiety 11/21/20 01/21/23 History omeprazole 40 mg capsule,delayed 40 mg PO DAILY #30 caps 11/22/20 01/21/23 Rx release multivitamin with minerals-folic 1 tablet PO DAILY 01/14/23 01/21/23 History acid 200 mcg chewable tablet (Adult Multivitamin Gummies) Allergies Allergy/AdvReac Type Severity Reaction Status Date / Time Iodinated Contrast Media Allergy Severe RASH, Verified 01/21/23 07:29 HYPOTENSION adhesive Allergy Unknown RASH Verified 01/21/23 07:29 doxycycline Allergy Unknown Dizziness Verified 01/21/23 07:29 ORAL CONTRAST MEDIA Allergy Mild RASH Uncoded 01/21/23 07:29 Contrast Media Allergy Unknown RASH, Uncoded 01/21/23 07:29 HYPOTENSION Vital Signs Vital Signs - 24 hr 01/21/23 07:30 Temperature 97.7 F Pulse Rate 74 Respiratory Rate 18 Blood Pressure 133/79 Pulse Oximetry 100 Oxygen Delivery Room Air Exam Const: General: comfortable and no acute distress HENMT: Face/Nose/Sinus: Normal nares present Eyes: General: appearance normal, both eyes and all related structures Neck: Neck: no JVD Resp: Auscultation: clear to auscultation bilaterally Cardio: Rate: regular rate Rhythm: regular rhythm GI: Inspection: non-distended GI Palp: Yes Soft to palpation Skin: General skin exam: normal color Neuro: General: gait normal Speech: normal speech Extrem: General: normal to inspection Psych: Mental S
--- NOTE | 2023-01-21 08:31 | SUR.OPER ---
EGD start 819 end 825, Colonoscopy start 829
[2023-01-21 08:44] VITALS: BP 105/60; PULSE 71; RESP 20; O2SAT 98
--- NOTE | 2023-01-21 08:49 | SUR.OPER ---
Dr. Carter aware that Transverse polyp specimen was very tiny and unable to tell if polyp was retrieved due to debris.
[2023-01-21 08:54] VITALS: BP 110/74; PULSE 74; RESP 19; O2SAT 100
[2023-01-21 09:04] VITALS: BP 107/75; PULSE 71; RESP 20; O2SAT 99
== END 2023-01-21 09:10 | disposition home or self-care (01) ==
PROVIDERS: PCP Nurse Practitioner Family; Visit Provider Internal Medicine Gastroenterology
PROC: 0DJ08ZZ Inspection of Upper Intestinal Tract, Via Natural or Artificial Opening Endoscopic (ICD-10-PCS; CPT 43235; principal; 2023-01-21 08:30)
DX: Z12.11 Encounter for screening for malignant neoplasm of colon (principal); K63.5 Polyp of colon; K64.8 Other hemorrhoids; K21.9 Gastro-esophageal reflux disease without esophagitis; K22.2 Esophageal obstruction; K44.9 Diaphragmatic hernia without obstruction or gangrene; K29.50 Unspecified chronic gastritis without bleeding
CPT/HCPCS: 45385; 43450; 43239; 88305; J2704; J7120

== ENCOUNTER → 2023-08-13 12:17 | Outpatient (CLI) | payer OTHER, SELFPAY ==
--- NOTE | ~2023-08-13 | DEXA_ITS ---
Bone Density Report Name: SINA MOLINA Age: 63 Sex: Female Ethnicity: White Date of : 1960 Indication: postmenopausal; screening for osteoporosis; parental hip fracture; height loss; Referring Provider: MARILEE RANDALL Study: Bone densitometry was performed. Exam Date: August 13, 2023 Accession number: [id number] Bone Density: Region BMD T-score Z-score Classification AP Spine (L1, L2) 1.371 3.6 5.2 Normal Femoral Neck (Left) 0.800 -0.4 1.0 Normal Total Hip (Left) 0.975 0.3 1.5 Normal Femoral Neck (Right) 0.793 -0.5 1.0 Normal Total Hip (Right) 0.976 0.3 1.5 Normal Total Hip Mean 0.976 0.3 1.5 Normal World Health Organization criteria for BMD impression classify patients as: Normal (T-score at or above -1.0), Osteopenia (T-score between -1.0 and -2.5), or Osteoporosis (T-score at or below -2.5). 10-year Fracture Risk: FRAX not reported because: All T-scores for Spine Total, Hip Total, Femoral Neck at or above -1.0 Clinical Information Provided by Patient: Parent has had a hip fracture Has used the following medications: Vitamin D, Calcium, MTV Patient maximum height was 65.5 Menopause Age: 51 Drinks caffeinated beverages Onset of menses at age 17 Number of children 0 Missed period for more than 6 months in a row Impression: The patient has normal bone mass. The patient has risk factors, including: parental hip fracture. Discussion: BONE DENSITY IS ABOVE THE MINIMUM DESIRABLE LEVEL AT ALL SKELETAL SITES TESTED. This patient?s bone mineral density is above the minimum desirable level (T-score -1.0 or better) at all sites measured. The patient should follow a healthful lifestyle (good nutrition with adequate calcium and vitamin D, and appropriate weight-bearing exercise). Follow-Up: Consider repeating this study in 5 years or sooner if there is some new clinical indication. Reported by: [facility] on 08/13/2023 12:57:00 PM. Reviewed, dictated and finalized at location [facility]
== END ==
PROVIDERS: PCP Nurse Practitioner Family; Visit Provider Nurse Practitioner Family
DX: Z13.820 Encounter for screening for osteoporosis (principal); Z78.0 Asymptomatic menopausal state
CPT/HCPCS: 77080

== ENCOUNTER 2024-01-21 09:28 | Outpatient (CLI) | payer OTHER, SELFPAY ==
--- NOTE | ~2024-01-21 | MM_ITS ---
EXAMINATION: MM screening karrie BI w honorio HISTORY: Screening TECHNIQUE: Craniocaudal and mediolateral oblique 3-D tomosynthesis images were obtained and synthetic 2-D images were generated. CAD analysis was submitted and interpreted. COMPARISON: Comparison to multiple prior studies sequentially, with oldest reviewed study dated 09/2014. BREAST PARENCHYMAL COMPOSITION: Not dense: There are scattered areas of fibroglandular density. FINDINGS: There is no evidence of suspicious mass, calcification, or architectural distortion to sugg est malignancy in either breast. There has been no suspicious interval change. IMPRESSION: 1. No mammographic evidence of malignancy. 2. Recommend routine screening mammography in one year. BI-RADS Category 1: Negative Reviewed, dictated and finalized at location B.
== END 2024-01-21 09:29 | disposition home or self-care (01) ==
PROVIDERS: PCP Nurse Practitioner Family; Visit Provider Nurse Practitioner Family
DX: Z12.31 Encounter for screening mammogram for malignant neoplasm of breast (principal)
CPT/HCPCS: 77063; 77067

== ENCOUNTER 2024-01-21 10:21 | Outpatient (CLI) | payer OTHER, SELFPAY ==
[2024-01-21 11:02] LABS: Hematocrit 45.9 % (37.0-47.0); Hemoglobin 14.8 g/dL (12.0-15.0); Mean Corpuscular HGB Conc 32.2 g/dl (32-36); Mean Corpuscular Hemoglobin 29.1 pg (26-34); Mean Corpuscular Volume 90.4 fl (80-100); Platelet Count Result 251 k/mm3 (150-375); Red Blood Count 5.08 M/mm3 (4.2-5.4); Red Cell Distribution Width 13.1 % (11.5-14.5); White Blood Count 7.3 K/mm3 (4.5-10.0)
[2024-01-21 11:21] LABS: Alanine Aminotransferase 24 U/L (6-35); Albumin Level 4.4 g/dL (3.5-5.1); Alkaline Phosphatase 90 U/L (38-126); Anion Gap 6 mmol/L (4-12); Aspartate Amino Transferase 32 U/L (14-36); Bilirubin,Total 0.5 mg/dL (0.2-1.3); Blood Urea Nitrogen 16 mg/dL (7-17); Calcium 9.8 mg/dL (8.4-10.2); Carbon Dioxide 30 mmol/L (22-30); Chloride 107 mmol/L (98-107); Cholesterol 272 mg/dL (0-200); Estimated Glomerular Filt Rate > 60; Glucose 88 mg/dL (65-110); HDL Direct 78 mg/dL; Potassium 4.6 mmol/L (3.4-5.0); Sodium 143 mmol/L (137-145); Triglycerides 132 mg/dL (<150)
[2024-01-21 11:33] LABS: LDL Cholesterol Direct 128 mg/dL
[2024-01-21 12:40] LABS: Hemoglobin A1C 5.2 % (<5.7)
== END 2024-01-21 10:22 | disposition home or self-care (01) ==
LOC: ANHLAB 10:23
PROVIDERS: PCP Nurse Practitioner Family; Visit Provider Nurse Practitioner Family
DX: Z13.0 Encounter for screening for diseases of the blood and blood-forming organs and certain disorders involving the immune mechanism (principal); Z13.220 Encounter for screening for lipoid disorders; Z13.1 Encounter for screening for diabetes mellitus
CPT/HCPCS: 36415; 80053; 80061; 83036; 84443; 85027

== ENCOUNTER 2024-11-13 10:29 | Outpatient (CLI) | payer MEDICARE, SELFPAY ==
--- OUTSIDE RECORDS SUMMARY | 2024-11-13 10:57 | XMS_ITS | Clinical Summary ---
Author Organization [facility] Address [address] [place] [address] Care Team Providers Care Canal Driver Name Role Phone Unavailable Primary Care Provider Unavailabl e Social History Tobacco Use Types Packs/Day Years Used Date Smoking Tobacco: Never Assessed Comments Unknown Sex and Gender Information Value Date Recorded Sex Assigned at Not on file Legal Sex Female 9:27 PM CDT Gender Identity Not on file Sexual Orientation Not on file Last Filed Vital Signs Vital Sign Reading Time Taken Comments Blood Pressure 118/78 10/14/2017 8:33 AM RECEIVABLES SPECIALIST Pulse 65 10/14/2017 8:33 AM RECEIVABLES SPECIALIST Temperature - - Respiratory Rate - - Oxygen Saturation - - Inhaled Oxygen Concentration - - Weight 74.8 kg (165 lb) 10/14/2017 8:33 AM RECEIVABLES SPECIALIST Height 168.9 cm (5' 6.5 ) 10/14/2017 8:33 AM RECEIVABLES SPECIALIST Body Mass Index 26.23 10/14/2017 8:33 AM RECEIVABLES SPECIALIST Plan of Treatment Health Maintenance Due Date Last Done Comments Colorectal Cancer Screening Colonoscopy (10 Years) 1960 Hepatitis C 1977 DTaP, Tdap and Td Vaccines ( 1 - Tdap) 1978 Mammogram Screening 1999 Zoster Vaccines (1 of 2) 2009 COVID-19 Vaccine ( - 2023-2 5 season) 2024 Dexa Scan (General) 2024 Pneumococcal Vaccine: 65+ Ye ars (1 of 1 - PCV) 2024 RSV Immunization or 60+ Years (1 - 1-dose 75+ series) 2034 Meningococcal B Vaccine Aged Out No l onger eligible based on patient's age to complete this topic Meningococcal Vaccine Aged Out No kandi kristine eligible based on patient's age to complete this topic Pneumococcal Vaccine: Pediat rics (0 to 5 Years) and At-Risk Patients (6 to 64 Years) Aged Out No longer eligible b ased on patient's age to complete this topic RSV Immunizations Under 20 Months Aged Out No longer eligible based on patient's age to complete this topic
[2024-11-13 11:20] LABS: Cholesterol 230 mg/dL (0-200); HDL Direct 74 mg/dL; Triglycerides 105 mg/dL (<150)
[2024-11-13 11:32] LABS: LDL Cholesterol Direct 102 mg/dL
== END 2024-11-13 10:30 | disposition home or self-care (01) ==
LOC: ANHLAB 10:30
PROVIDERS: PCP Nurse Practitioner Family; Visit Provider Nurse Practitioner Family
DX: E78.00 Pure hypercholesterolemia, unspecified (principal)
CPT/HCPCS: 36415; 80061

== ENCOUNTER 2025-08-02 09:15 | Outpatient (RCR) | payer MEDICARE, SELFPAY ==
--- NOTE | 2025-05-05 16:07 | OPREHPOC ---
Outpatient Therapy Plan of Care This is a Multidisciplinary Plan of Care that may contain components documented by all disciplines (PT, OT, and ST.) PT Problem 1 PT Problem #1 Knowledge Deficit PT Goal 1 Goal / Goal Update 1* independent with HEP 2* correct shoulder posture with exercises Target Visit 10 PT Problem 2 PT Problem #2 Pain PT Goal 1 Goal / Goal Update 1* pt report pain rating at worst of 210 2* pt report NO awakening from sleep due to pain Target Visit 10 PT Problem 3 PT Problem #3 Impaired Flexibility PT Goal 1 Goal / Goal Update increase ROM of L shoulder to improve use of arm with overhead reaching and washing her back active ROM in standing 1* flexion 150' 2* IR- reach behind back, fingers to distal edge of scapula Target Visit 10 PT Problem 4 PT Problem #4 Impaired Strength PT Goal 1 Goal / Goal Update increase strength of L shoulder, to improve use for home tasks and self care 1*gross strength of L shoulder 4/5 2* pt report she is performing all of her home tasks with out any problems Target Visit 10
--- NOTE | 2025-05-05 16:07 | PTOPEVAL1 ---
Assessment and note entered by Darleen Tsang, PT Evaluation Information Assessment Status Evaluation ICD-10 Condition Codes (PT) Pain in right shoulder M25.511 Onset January 2025 Subjective Information gradual increase in shoulder tightness and soreness; no injury to shoulder have history of R shoulder frozen and feels like that; did PT and R shoulder is normal now R hand dominant can do everything but some pain and then switch to other arm activity: retired OB PRN, works PRN at hospital; independent with all home and work tasks have started some of the shoulder exercises from before: slide hand up wall, stretch in doorway Reported Pain Level Pain Score Self Report Additional Pain Score Comments pain range in the past week 0-6/10; top of shoulder- pull, tight, ache increase pain: reach up overhead, reach behind back and shower, pushing arm straight out in front of her decrease pain: tylenol ice not really make a difference reports with sleeping awaken 2x/night due to shoulder pain Assessment PT Clinical Summary Adamaris has the diagnosis of L shoulder pain/frozen shoulder. Self assessment with Quick DASH rating of 32% limitation in activity. She is R hand dominant and has a history of R frozen shoulder and recognized the symptoms and sought care for shoulder. 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 Sleeping is disrupted due to pain. Also have issues with reaching overhead and behind her back to take a shower. With the evaluation: decreased ROM and strength of L shoulder with most pain with IR motion; Skilled PT services are indicated for modalities to decrease pain and spasms, therapeutic exercises to increase strength and flexibility and modalities for pain control, education for HEP and pain management techniques. Plan of Care Interventions Electrical Stimulation,Hot Pack/Cold Pack,Manual Therapy,Neuro Re-education,Patient/Caregiver Education,Therapeutic Activities,Therapeutic Exercise,Ultrasound,Other Other Interventions taping, dry needling- pt agreed to PT Services Indicated Yes Treatment Frequency and 2x/wk for 10 visits Duration These treatments will address the objective and functional deficits as defined above. The patient will be advanced safely and appropriately in order for the patient to progress towards his/her prior level of function. Additional exercises will be introduced and as well as a comprehensive home exercise program upon discharge, if needed, ?to ensure carryover of functional gains achieved in the clinic. This treatment plan has been reviewed and agreement upon by the patient.
--- NOTE | 2025-06-11 14:29 | OPREHPOC ---
Outpatient Therapy Plan of Care This is a Multidisciplinary Plan of Care that may contain components documented by all disciplines (PT, OT, and ST.) PT Problem 1 PT Problem #1 Knowledge Deficit PT Goal 1 Goal / Goal Update 1* independent with HEP 2* correct shoulder posture with exercises 06-11-25 progress goals met; continue with goals to progress HEP and education Target Visit 20 PT Problem 2 PT Problem #2 Pain PT Goal 1 Goal / Goal Update 1* pt report pain rating at worst of 2/10 2* pt report NO awakening from sleep due to pain 06-11-25 progress goal 2 met; #1 improved to 3/10 continue towards goal 1 Target Visit 20 PT Problem 3 PT Problem #3 Impaired Flexibility PT Goal 1 Goal / Goal Update increase ROM of L shoulder to improve use of arm with overhead reaching and washing her back active ROM in standing 1* flexion 150' 2* IR- reach behind back, fingers to distal edge of scapula 06-11-25 progress goal 2 met; #1 improved to 135 continue towards goal 1 Target Visit 20 PT Problem 4 PT Problem #4 Impaired Strength PT Goal 1 Goal / Goal Update increase strength of L shoulder, to improve use for home tasks and self care 1*gross strength of L shoulder 4 2* pt report she is performing all of her home tasks with out any problems 06-11-25 progress goals not met continue towards Target Visit 20
--- NOTE | 2025-06-11 14:29 | PTOPPROG ---
Assessment and note entered by Darleen Tsang, PT Assessment Status Progress ICD-10 Condition Codes (PT) Pain in right shoulder M25.511 Onset January 2025 Subjective Information shoulder motion is 100% better, but still have pain on side of shoulder- catches and hurts; saw my medical provider this week; want to continue therapy. PAIN: range in the past week 1-3/10; ache at lateral GH joint, catches there increase pain: reaching out or to the sides decrease pain: rest arm, foam roller over shoulder , ice, heat with sleeping report sleeping without awakening, doing OK Assessment PT Clinical Summary Adamaris has received 10 PT sessions. She has improved in all areas with today's reassessment: pain rating from 0-6/10 1-310; self assessment from 32 to 23% limitation in activity level; report sleeping tolerance from awakening 2x /night to 0x/night due to pain; increase active and passive ranges of all shoulder motions; education for HEP, posture and body mechanics. Active ROM of L shoulder in standing/passive in supine: flexion 135/160'; [id number]/160'; in standing: IR- reach behind back, fingers to lower scapula; ER- reach to back of head, fingers to cervical spine. The goals were partially achieved. Continue PT treatment. Plan of Care Interventions Electrical Stimulation,Hot Pack/Cold Pack,Manual Therapy,Neuro Re-education,Patient/Caregiver Education,Therapeutic Activities,Therapeutic Exercise,Ultrasound,Other Other Interventions taping, dry needling- pt agreed to PT Services Indicated Yes Treatment Frequency and 2x/wk for 10 visits Duration These treatments will address the objective and functional deficits as defined above. The patient will be advanced safely and appropriately in order for the patient to progress towards his/her prior level of function. Additional exercises will be introduced and as well as a comprehensive home exercise program upon discharge, if needed, ?to ensure carryover of functional gains achieved in the clinic. This treatment plan has been reviewed and agreement upon by the patient.
--- NOTE | 2025-07-20 12:33 | PTOPPROG ---
Assessment and note entered by Lizy Lewis, PT Re-Evaluation Information Assessment Status Progress ICD-10 Condition Codes (PT) Pain in right shoulder M25.511 Onset January 2025 Subjective Information Pt reports she was doing very well with therapy until she experienced a setback 2 weeks ago. The shoulder pain flared up to a 10/10 that lasted for approx 3 days before calming down. denies any trauma or drastic change to activity level, denies lifting weights at the gym since starting therapy . Currently still feels high pain levels when rapidly moving arm overhead or out to the sides, even if she move it slow, the end-ranges still feel achy, tight and seems like there is a catch had to carefully lower arm back down to resting position due to the pain she'll feel if she drops arm right away. Assessment PT Clinical Summary Pt received 19 treatment sessions and has been showing good progress with therapy. However, she had a recent set back and her pain levels flared up. Pain levels during today's eval is not as high as 2 weeks ago. Active ROM is higher, however continue to feel discomfort at endranges. upon palpation, pt demos some hypomobility to B scapula L > R, negative for painful arc, however occasionally feels pain at end ranges of active flexion and abduction ROM and end ranges of ER as well as with dropping her arm from elevated position. Pt is agreeable with plan to continue therapy to improve flexibility, scapular stabilization and postural awareness and manage pain. If pain persist or become worse, she may need further diagnostic evaluation at that time. Plan of Care Interventions Electrical Stimulation,Hot Pack/Cold Pack,Manual Therapy,Neuro Re-education,Patient/Caregiver Education,Therapeutic Activities,Therapeutic Exercise,Ultrasound,Other Other Interventions taping, dry needling- pt agreed to PT Services Indicated Yes Treatment Frequency and 2/wk x 6 visits Duration These treatments will address the objective and functional deficits as defined above. The patient will be advanced safely and appropriately in order for the patient to progress towards his/her prior level of function. Additional exercises will be introduced and as well as a comprehensive home exercise program upon discharge, if needed, ?to ensure carryover of functional gains achieved in the clinic. This treatment plan has been reviewed and agreement upon by the patient.
--- NOTE | 2025-07-20 12:33 | OPREHPOC ---
Outpatient Therapy Plan of Care This is a Multidisciplinary Plan of Care that may contain components documented by all disciplines (PT, OT, and ST.) PT Problem 1 PT Problem #1 Knowledge Deficit PT Goal 1 Goal / Goal Update 1* independent with HEP 2* correct shoulder posture with exercises 07/20/2025: goals met 06-11-25 progress goals met; continue with goals to progress HEP and education Target Visit 20 PT Problem 2 PT Problem #2 Pain PT Goal 1 Goal / Goal Update 1* pt report pain rating at worst of 2/10 2* pt report NO awakening from sleep due to pain 07/20/2025 progress: set back with pain levels --- please cont with goal 1-2. 06-11-25 progress goal 2 met; #1 improved to 3/10 continue towards goal 1 Target Visit 20 PT Problem 3 PT Problem #3 Impaired Flexibility PT Goal 1 Goal / Goal Update increase ROM of L shoulder to improve use of arm with overhead reaching and washing her back active ROM in standing 1* flexion 150' 2* IR- reach behind back, fingers to distal edge of scapula 07/20/2025 progress: goal met, upgraded: *NEW GOAL: Pt will demo full AROM of L shoulder without pain or discomfort at end range 06-11-25 progress goal 2 met; #1 improved to 135 continue towards goal 1 Target Visit 20 PT Problem 4 PT Problem #4 Impaired Strength PT Goal 1 Goal / Goal Update increase strength of L shoulder, to improve use for home tasks and self care 1*gross strength of L shoulder 4/5 2* pt report she is performing all of her home tasks with out any problems 07/20/2025 progress: 1. cont with this goal 2. minimal difficulty at this time placido reaching for overhead cupboards. Cont with this goal. 06-11-25 progress goals not met continue towards Target Visit 20
== END 2025-08-03 23:59 | disposition home or self-care (01) ==
LOC: ANHPT 09:15
PROVIDERS: PCP Nurse Practitioner Family; Visit Provider Nurse Practitioner Family
DX: M25.512 Pain in left shoulder (principal)
CPT/HCPCS: 97014; 97035; 97110; 97112; 97140; 97161; 97530; 97750; G0283